=== PATIENT | female | born 2000 | race African-American/Black ===

== ENCOUNTER 2020-06-23 14:19 | Emergency (ER) | payer SELFPAY ==
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
[2020-06-23 14:24] VITALS: BP 134/65; PULSE 103; RESP 16; TEMP 37.3; O2SAT 100
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
[2020-06-23 17:23] VITALS: BP 130/62; PULSE 100; RESP 17; O2SAT 98
== END 2020-06-23 17:25 | disposition home or self-care (01) ==
PROVIDERS: Emergency Provider Emergency Medicine
DX: S39.012A Strain of muscle, fascia and tendon of lower back, initial encounter (principal); S16.1XXA Strain of muscle, fascia and tendon at neck level, initial encounter; V43.52XA Car driver injured in collision with other type car in traffic accident, initial encounter
CPT/HCPCS: 72100; 72125; 73562; 99284

== ENCOUNTER 2021-02-21 02:20 | Emergency (ER) | payer BC, SELFPAY ==
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
--- NOTE | 2021-02-21 02:26 | ECG_ITS ---
Measurements Intervals [place] Rate: 73 P: 12 AL: 167 QRS: 18 QRSD: 100 T: 5 QT: 369 QTc: 407 Interpretive Statements SINUS RHYTHM INCOMPLETE RIGHT BUNDLE BRANCH BLOCK BORDERLINE T WAVE ABNORMALITY- INFERIOR LEADS BORDERLINE ECG Electronically Signed On 02-21-2021 7:30:32 CDT by Elijah Moran D.O.
[2021-02-21 02:30] VITALS: BP 147/97; PULSE 98; RESP 18; TEMP 37.1; O2SAT 97
--- NOTE | 2021-02-21 02:30 | PC.NURSE ---
Pt presents to ED with complaints of chest pain, nausea and sob that onset at approx 0030. Pt states she went out for mimosa's with friends and shortly after drinking she began to feel strange. Pt states she became sob and couldn't breathe. Pt denies any substance abuse and is noted to be anxious and jumpy. Pt friend presented to ED with her and both state pt does not use any reacreational drugs. Pt noted to be alert and orientedx4 and breathing is even and unlabored. Pt denies hx of similar events. Vitals are stable, O2 saturation 98% on room air.
[2021-02-21 02:38] VITALS: BP 147/97; PULSE 78; RESP 14; TEMP 37.2; O2SAT 100
--- NOTE | 2021-02-21 02:45 | ED.GENADULT ---
HPI - General Adult General Chief complaint: Altered Mental Status Stated complaint: AMS, anxiety Time Seen by Provider: 02/21/21 02:23 History of Present Illness HPI narrative: Patient 20-year-old female that presents to the emergency department with chief complaint of altered mental status. Per the patient's friend the patient went out this afternoon and had mimosas with a brunch. The patient has been feeling anxious and has had chest discomfort and is also had nausea and vomiting. The patient states right now she feels extremely anxious and feels extremely weak and as though she is very dry. The patient denies injury denies loss of consciousness Related Data Allergies Allergy/AdvReac Type Severity Reaction Status Date / Time No Known Allergies Allergy Verified 06/23/20 16:45 Review of Systems Review of Systems: Narrative: A 10 system review of systems was completed on the patient and is negative except for what is stated in the HPI. Nursing and ancillary documentation was reviewed. [facility] Social History Social History Gender identity (if verbalized by the patient): Female Exam Narrative: Exam Narrative: GENERAL: Well-appearing, well-nourished, and in no acute distress. HEAD: Normocephalic, atraumatic. EYES: PERRLA and EOMI. ENT: Nares clear, no rhinorrhea or epistaxis. Mucous membranes moist. NECK: Supple. CHEST: Clear to auscultation. No respiratory distress. Chest wall is tender to palpation HEART: Regular rate and rhythm. No murmur heard. Normal peripheral pulses. ABDOMEN: Soft, nontender, nondistended, normal active bowel sounds. EXTREMITIES: Normal range of motion. No edema. SKIN: Warm, dry, no rash. NEURO: No focal deficits. Alert and oriented x3. PSYCH: Normal mood and affect. Course Course Emergency Course: Patient has been observed in the emergency department EKG showed no evidence of acute ischemia. Chest x-ray showed no focal abnormalities Vital Signs Vital signs: Vital Signs Temperature 37.1 C 02/21/21 02:30 Pulse Rate 98 02/21/21 02:30 Respiratory Rate 18 02/21/21 02:30 Blood Pressure 147/97 H 02/21/21 02:30 Pulse Oximetry 97 02/21/21 02:30 Temperature 37.2 C 02/21/21 02:38 Pulse Rate 81 02/21/21 06:16 Respiratory Rate 17 02/21/21 06:16 Blood Pressure 126/67 02/21/21 06:16 Pulse Oximetry 100 02/21/21 06:16 Medical Decision Making Vital Signs Vital Signs: Vital Signs Temperature 37.1 C 02/21/21 02:30 Pulse Rate 98 02/21/21 02:30 Respiratory Rate 18 02/21/21 02:30 Blood Pressure 147/97 H 02/21/21 02:30 Pulse Oximetry 97 02/21/21 02:30 Temperature 37.2 C 02/21/21 02:38 Pulse Rate 81 02/21/21 06:16 Respiratory Rate 17 02/21/21 06:16 Blood Pressure 126/67 02/21/21 06:16 Pulse Oximetry 100 02/21/21 06:16 Lab Data Result diagrams: 02/21/21 02:55 02/21/21 02:55 Labs: Lab Results 02/21/21 02/21/21 02/21/21 Range/Units 02:55 02:55 02:55 WBC 7.0 (4.5-10.0) K/mm3 RBC 5.21 (4.2-5.4) M/mm3 Hgb 14.0 (12.0-15.0) g/dL Hct 42.9 (37.0-47.0) % MCV 82.3 (80-100) fl MCH 26.9 (26-34) pg MCHC 32.6 (32-36) g/dl RDW 12.9 (11.5-14.5) % Plt Count 317 (150-375) k/mm3 MPV 11.1 H (7.4-10.4) fl Immature Gran % (Auto) 0.3 (0-0.5) % Neut % (Auto) 69.0 (45.5-73.1) % Lymph % (Auto) 20.6 (18.3-44.2) % Reeves % (Auto) 9.7 H (2.6-8.5) % Eos % (Auto) 0.0 (0-4.4) % Baso % (Auto) 0.4 (0.2-1.2) % Lymph # (Auto) 1.45 (0.9-3.2) K/mm3 Reeves # (Auto) 0.7 H (0.1-0.6) K/mm3 Eos # (Auto) 0.0 (0-0.3) K/mm3 Baso # (Auto) 0.0 (0.0-0.1) K/mm3 Abs Immat Gran (auto) 0.02 (0.00-0.031) K/mm3 Absolute Neuts (auto) 4.9 (1.3-6.7) K/mm3 Absolute Nucleated RBC 0.0 (0.0-0.012) K/mm3 Nucleated RBC % 0.0 (0.0-0.2) % Sodium 140 (137-145) mmo
--- NOTE | 2021-02-21 03:03 | PC.NURSE ---
CXR completed at bedside.
[2021-02-21] MEDS: SODIUM CHLORIDE 0.9% IV 1,000 ML 999 ML IV CONT (03:04)
[2021-02-21] MEDS: PROCHLORPERAZINE EDISYLATE 10 MG/2 ML VIAL IV PUSH (03:05)
[2021-02-21] MEDS: diphenhydrAMINE HCl INJ 50 MG/ML VIAL 25 MG IV PUSH (03:05)
[2021-02-21 03:09] LABS: Basophils Percent Auto 0.4 % (0.2-1.2); Hematocrit 42.9 % (37.0-47.0); Immature Granulocyte Absolute 0.02 K/mm3 (0.00-0.031); Immature Granulocyte Percent A 0.3 % (0-0.5); Lymphocytes Absolute Auto 1.45 K/mm3 (0.9-3.2); Lymphocytes Percent Auto 20.6 % (18.3-44.2); Mean Corpuscular HGB Conc 32.6 g/dl (32-36); Mean Corpuscular Hemoglobin 26.9 pg (26-34); Mean Corpuscular Volume 82.3 fl (80-100); Mean Platelet Volume 11.1 fl (7.4-10.4); Monocytes Absolute Auto 0.7 K/mm3 (0.1-0.6); Monocytes Percent Auto 9.7 % (2.6-8.5); Neutrophils Absolute Auto 4.9 K/mm3 (1.3-6.7); Platelet Count Result 317 k/mm3 (150-375); Red Blood Count 5.21 M/mm3 (4.2-5.4); Red Cell Distribution Width 12.9 % (11.5-14.5)
[2021-02-21 03:14] LABS: Acetaminophen < 10 ug/mL (10-30); Ethanol < 10 mg/dL (<10); Salicylate < 1.0 mg/dL (2-20)
[2021-02-21 03:16] LABS: Lactic Acid Reflex 1.7 mmol/L (0.7-2.1)
[2021-02-21 03:23] LABS: Alanine Aminotransferase 25 U/L (4-35); Albumin Level 4.8 g/dL (3.5-5.1); Alkaline Phosphatase 69 U/L (38-126); Anion Gap 11 mmol/L (8-16); Aspartate Amino Transferase 34 U/L (14-36); Bilirubin,Total 0.4 mg/dL (0.2-1.3); Blood Urea Nitrogen 7 mg/dL (7-17); Calcium 9.8 mg/dL (8.4-10.2); Carbon Dioxide 24 mmol/L (22-30); Chloride 105 mmol/L (98-107); Estimated Glomerular Filt Rate > 60; Glucose 108 mg/dL (65-105); Potassium 3.7 mmol/L (3.4-5.0); Sodium 140 mmol/L (137-145)
[2021-02-21 03:35] LABS: Troponin I < 0.012 ng/mL (0.000-0.034)
--- NOTE | 2021-02-21 03:45 | PC.NURSE ---
Pt on cart sleeping. Friend remains at bedside. Vitals are stable and pt in no obvious distress.
--- NOTE | 2021-02-21 04:52 | PC.NURSE ---
pt ambulated to restroom with steady gait to provide urine specimen. Pt states I feel a lot better than I did when I first came in here . Pt alert and oriented x4. Breathing even and unlabored and pt in no obvious distress.
--- NOTE | 2021-02-21 05:09 | PC.NURSE ---
EDMD presented to bedside. Updated pt on poc. Pt states she is still unable to urinate but has ambulated to restroom to attempt again.
--- NOTE | 2021-02-21 05:30 | PC.NURSE ---
Pt unable to urinate. Provided ice water per ok from EDMD.
--- NOTE | 2021-02-21 05:52 | PC.NURSE ---
Pt straight cath'd and tolerated well. Urine specimen collected and sent to lab. Bedside negative.
[2021-02-21 06:03] LABS: Add Urine Microscopic? YES; Appearance Urine Clear (Clear); Bilirubin Urine Negative (Negative); Blood Urine Negative (Negative); Color Urine Yellow (Yellow); Glucose Urine UA Negative (Negative); Ketones Urine Trace mg/dL (Negative); Leukocyte Esterase Ur Negative LEU/UL (Negative); Mucus Urine Few /lpf; Nitrate Urine Negative (Negative); Protein Urine 2+ mg/dL (Negative); RBC Urine 0-2 /hpf (0-2); Squamous Epithelial Cell Urine Rare /hpf (Few); WBC Urine 0-3 /hpf
[2021-02-21 06:16] VITALS: BP 126/67; PULSE 81; RESP 17; O2SAT 100
--- NOTE | 2021-02-21 06:17 | PC.NURSE ---
Pt resting on cart in its lowest position with call button for assistance. Vitals are stable and pt in no obvious distress.
[2021-02-21 06:19] LABS: Amphetamine Screen Urine Negative (Negative); Barbiturate Screen Urine Negative (Negative); Benzodiazepines Screen Urine Negative (Negative); Cannabinoid Screen Urine Positive (Negative); Cocaine Screen Urine Negative (Negative); Methadone Screen Urine Negative (Negative); Opiate Screen Urine Negative (Negative); Phencyclidine Screen Urine Negative (Negative)
--- NOTE | 2021-02-21 06:38 | PC.NURSE ---
EDMD presented to bedside to updated pt on poc. All questions and concerns addressed.
== END 2021-02-21 06:45 | disposition home or self-care (01) ==
PROVIDERS: Emergency Provider Emergency Medicine
DX: R07.89 Other chest pain (principal); R94.31 Abnormal electrocardiogram [ECG] [EKG]; I45.10 Unspecified right bundle-branch block
CPT/HCPCS: 36415; 71045; 80053; 80307; 81001; 81025; 83605; 84484; 85025; 93005; 96361; 96374; 96375; 99284; J0780; J1200; J7030

== ENCOUNTER 2021-09-04 14:11 | Emergency (ER) | payer OTHER, BC, SELFPAY ==
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
[2021-09-04 14:22] VITALS: BP 152/92; PULSE 78; RESP 17; TEMP 36.4; O2SAT 97
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
[2021-09-04] MEDS: ACETAMINOPHEN 500 MG TABLET 1000 MG PO (15:11)
[2021-09-04 17:37] VITALS: BP 138/78; PULSE 76; RESP 18; O2SAT 99
== END 2021-09-04 17:39 | disposition home or self-care (01) ==
PROVIDERS: Emergency Provider Emergency Medicine
DX: S09.90XA Unspecified injury of head, initial encounter (principal); S16.1XXA Strain of muscle, fascia and tendon at neck level, initial encounter; V48.5XXA Car driver injured in noncollision transport accident in traffic accident, initial encounter
CPT/HCPCS: 70450; 70486; 72125; 72128; 99284; A9270

== ENCOUNTER 2022-09-15 10:18 | Emergency (ER) | payer BC, SELFPAY ==
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
--- NOTE | ~2022-09-15 | CT_ITS ---
EXAMINATION: CTA chest PE protocol DATE: 09/15/2022 14:25 INDICATION: Chest pain. Shortness of breath. TECHNIQUE: Computed tomography angiography (CTA) of the chest was performed with 100 mL Omnipaque-350 intravenous contrast timed to evaluate the pulmonary arteries. Coronal maximum intensity projection 3D-reconstructions were created by the technologist. Automated exposure control and iterative reconst ruction technique were employed. The dose-length product was 537.17 mGy-cm. COMPARISON: None. FINDINGS: The lungs demonstrate mild atelectasis. There are mild groundglass and airspace opacities i n left lower lobe, consistent with pneumonia. No pleural effusion. The heart size is normal. No peric ardial effusion. There is no pulmonary embolus. The bones are unremarkable. IMPRESSION: 1. No pulmonary embolus. 2. Mild pneumonia in left lower lobe. Reviewed, dictated and finalized at location A. DINE OPERATOR
[2022-09-15 10:44] VITALS: BP 158/103; PULSE 117; RESP 20; TEMP 36.8; O2SAT 100
--- NOTE | 2022-09-15 10:51 | ECG_ITS ---
Measurements Intervals [place] Rate: 90 P: 40 CT: 154 QRS: 15 QRSD: 99 T: 16 QT: 335 QTc: 412 Interpretive Statements SINUS RHYTHM INCOMPLETE RIGHT BUNDLE BRANCH BLOCK BORDERLINE T WAVE ABNORMALITY- INF/LAT LEADS BORDERLINE ECG COMPARED TO ECG 02/21/2021 05:05:47 NO SIGNIFICANT CHANGES Electronically Signed On 09-15-2022 14:59:56 ALLIGATOR SHEAR OPERATOR by Elijah Moran D.O.
[2022-09-15 12:02] VITALS: BP 151/77; PULSE 81; RESP 12; O2SAT 100
[2022-09-15 12:15] LABS: Hematocrit 45.5 % (37.0-47.0); Hemoglobin 14.4 g/dL (12.0-15.0); Immature Granulocyte Absolute 0.01 K/mm3 (0.00-0.031); Immature Granulocyte Percent A 0.2 % (0-0.5); Lymphocytes Absolute Auto 1.06 K/mm3 (0.9-3.2); Lymphocytes Percent Auto 26.3 % (18.3-44.2); Mean Corpuscular HGB Conc 31.6 g/dl (32-36); Mean Corpuscular Hemoglobin 26.9 pg (26-34); Mean Platelet Volume 10.1 fl (7.4-10.4); Monocytes Absolute Auto 0.5 K/mm3 (0.1-0.6); Monocytes Percent Auto 11.4 % (2.6-8.5); Neutrophils Absolute Auto 2.5 K/mm3 (1.3-6.7); Neutrophils Percent Auto 61.1 % (45.5-73.1); Platelet Count Result 243 k/mm3 (150-375); Red Blood Count 5.35 M/mm3 (4.2-5.4); Red Cell Distribution Width 13.2 % (11.5-14.5)
[2022-09-15 12:28] LABS: Influenza A QL RT-PCR Negative (Negative); Influenza B QL RT-PCR Negative (Negative); SARS-CoV-2 RNA PCR Positive
[2022-09-15 12:28] LABS: Alanine Aminotransferase 49 U/L (6-35); Albumin Level 4.6 g/dL (3.5-5.1); Alkaline Phosphatase 86 U/L (38-126); Anion Gap 13 mmol/L (8-16); Aspartate Amino Transferase 54 U/L (14-36); Bilirubin,Total 0.5 mg/dL (0.2-1.3); Blood Urea Nitrogen 6 mg/dL (7-17); Calcium 9.2 mg/dL (8.4-10.2); Carbon Dioxide 25 mmol/L (22-30); Chloride 101 mmol/L (98-107); Estimated CRCL calculation 118 ml/min; Estimated Glomerular Filt Rate > 60; Glucose 83 mg/dL (65-110); Lipase 104 U/L (23-300); Potassium 3.9 mmol/L (3.4-5.0); Sodium 139 mmol/L (137-145)
[2022-09-15 12:32] LABS: INR 1.1; Partial Thromboplastin Time 28.7 SECONDS (22.3-36.8); Prothrombin Time 13.6 Seconds (11.1-14.7)
[2022-09-15 12:38] LABS: Troponin I < 0.012 ng/mL (0.000-0.034)
[2022-09-15 12:46] VITALS: BP 154/99; PULSE 78; RESP 16; O2SAT 100
[2022-09-15 13:00] LABS: Platelet Estimate Adequate (Adequate)
[2022-09-15 13:01] LABS: Atypical Lymphocytes Present; Schistocytes None Seen (NORMAL)
[2022-09-15 13:17] LABS: D Dimer 0.53 ug/mL (<0.48)
--- NOTE | 2022-09-15 13:36 | ED.CHESTPAIN ---
HPI - Chest Pain General Chief Complaint: Chest Pain Stated Complaint: Covid positive, sob Time Seen by Provider: 09/15/22 12:06 Source: patient Mode of arrival: ambulatory Limitations: no limitations History of Present Illness HPI narrative: This is a 22-year-old female that presents to the emergency department for cold symptoms ongoing over the last couple of days. Reports myalgias, weakness, chills, chest pain, cough, and shortness of breath. Reports she tested positive for COVID yesterday. She is COVID vaccinated. Denies fever or lower extremity edema. Related Data Allergies Allergy/AdvReac Type Severity Reaction Status Date / Time No Known Allergies Allergy Verified 09/04/21 14:28 Review of Systems Review of Systems: CONSTITUTIONAL: Denies fever ENT: Reports congestion, sore throat CARDIOVASCULAR: Reports chest pain. Denies edema. RESPIRATORY: Reports cough and dyspnea. NEUROLOGIC: Reports generalized weakness. All systems reviewed & are unremarkable except as noted in HPI and below PMFSH Past Medical History Medical History (Updated 09/15/22 @ 16:18 by Josie Herrera PA-C) History of hypertension Social History Social History (Updated 09/15/22 @ 13:39 by Josie Herrera PA-C) Smoking status: Never smoker Substance use: never Gender identity (if verbalized by the patient): Female Exam Narrative: GENERAL: Well-appearing, well-nourished, and in no acute distress. HEAD: Normocephalic, atraumatic. EYES: EOMI. ENT: Nares clear, no rhinorrhea or epistaxis. Mucous membranes moist. Oropharynx without tonsillar hypertrophy exudate or other lesions. Bilateral TMs pearly cervantes non-bulging NECK: Supple. No adenopathy or masses. CHEST: Clear to auscultation. No respiratory distress. No wheezes rales or rhonchi HEART: Regular rate and rhythm. No murmur heard. Normal peripheral pulses. EXTREMITIES: Normal range of motion. No edema. SKIN: Warm, dry, no rash. NEURO: No focal deficits. Alert and oriented x3. PSYCH: Normal mood and affect Course Vital Signs Vital signs: Vital Signs Temperature 98.3 F 09/15/22 10:44 Pulse Rate 117 H 09/15/22 10:44 Respiratory Rate 20 09/15/22 10:44 Blood Pressure 158/103 H 09/15/22 10:44 Pulse Oximetry 100 09/15/22 10:44 Oxygen Delivery Room Air 09/15/22 10:44 Temperature 98.3 F 09/15/22 10:44 Pulse Rate 70 09/15/22 16:01 Respiratory Rate 16 09/15/22 16:01 Blood Pressure 136/83 09/15/22 16:01 Pulse Oximetry 100 09/15/22 16:01 Oxygen Delivery Room Air 09/15/22 10:44 MDM - Chest Pain MDM Narrative Medical decision making narrative: Patient presents to the emergency department for cold symptoms noted over the last couple of days. She is afebrile and nontoxic-appearing. Mildly tachycardic upon arrival, this normalized with fluids. CBC metabolic panel without concerning findings. Consistent with current viral infection. EKG without concerning changes. Baseline and 3 hour troponin are negative. D-dimer was elevated, so CTA of the chest was obtained. No evidence for PE. Patient does have a developing left lower lobe pneumonia. She is COVID-19 positive. Bedside test is negative. Patient was updated on case findings. Gave patient option of antiviral therapy with Paxlovid. She does wish to pursue this. This was sent to the pharmacy. She was instructed on continued care of viral infection. She is to follow-up with primary care provider. She was given warnings to return to the ER Lab Data Attestation: I reviewed the patient's lab results. Result diagrams: 09/15/22 12:09 09/15/22 12:09 Labs: Lab Results 09/15/22 09/15/22 09/15/22 Range/Units 11:47 12:09 12:09 WBC 4.0 L (4.5-10.0) K/mm3 RBC 5.35 (4.2-5.4) M/mm3 Hgb 14.4 (12.0-15.0) g/dL Hct 45.5 (37.0-47.0) % MCV 85.0 (80-100) fl MCH 26.9 (26-34) pg MCHC 31.6 L (32-36) g/dl RDW 13.2 (11.
[2022-09-15] MEDS: ALBUTEROL SULFATE (*SP) AEROSOL 1 PUFF 2 PUFF INHALATION (13:46)
[2022-09-15 14:02] VITALS: PULSE 81; RESP 19; O2SAT 100
[2022-09-15] MEDS: SODIUM CHLORIDE 0.9% IV 1,000 ML 999 ML IV CONT (14:41)
[2022-09-15 15:17] LABS: Troponin I < 0.012 ng/mL (0.000-0.034)
[2022-09-15] MEDS: KETOROLAC 15 MG/ML VIAL (*BKC) IV PUSH (15:28)
[2022-09-15 16:01] VITALS: BP 136/83; PULSE 70; RESP 16; O2SAT 100
[2022-09-15 16:50] VITALS: BP 134/93; PULSE 66; RESP 18; TEMP 36.9; O2SAT 100
== END 2022-09-15 17:00 | disposition home or self-care (01) ==
PROVIDERS: Emergency Medicine; Physician Assistant; Emergency Provider Emergency Medicine
DX: U07.1 COVID-19 (principal); J12.82 Pneumonia due to coronavirus disease 2019
CPT/HCPCS: 36415; 71045; 71275; 80053; 81025; 83690; 84484; 85025; 85380; 85610; 85730; 87636; 93005; 96361; 96374; 96375; 99284; A9270; J0131; J1885; J7030; Q9967

== ENCOUNTER 2022-10-18 08:10 | Emergency (ER) | payer BC, SELFPAY ==
[2022-10-18 08:22] VITALS: BP 147/80; PULSE 90; RESP 16; TEMP 36.1; O2SAT 100
--- NOTE | 2022-10-18 08:40 | ED.GENADULT ---
HPI - General Adult General Chief complaint: Urogenital-Female Stated complaint: std check up, vaginal discharge Source: patient Mode of arrival: ambulatory Limitations: no limitations History of Present Illness HPI narrative: Patient presents for evaluation of vaginal discharge since the end of August. At the time of symptom onset she had burning and itching sensation in her vaginal area. She quit at that time was given a prescription for amoxicillin. She states that the burning and itching away with amoxicillin. Vaginal discharge persists. She states the discharge is clear. She denies any fever, chills, nausea, vomiting, abdominal pain, or urinary symptoms. She is not taking any medications to assist with her symptoms. She has not been sexually active since the time of symptom onset. Prior to that time she had protected intercourse with a male partner. She is not sure if he is symptomatic. LMP 10/01/22. Related Data Allergies Allergy/AdvReac Type Severity Reaction Status Date / Time No Known Allergies Allergy Verified 09/04/21 14:28 Review of Systems Review of Systems: CONSTITUTIONAL: Denies fever, chills, or sweats. EYES: Denies visual changes, redness, or discharge. ENT: Denies rhinorrhea, congestion, sore throat, or otalgia. CARDIOVASCULAR: Denies chest pain, palpitations, or edema. RESPIRATORY: Denies cough or dyspnea. GASTROINTESTINAL: Denies abdominal pain, nausea, vomiting, or diarrhea. GENITOURINARY: reports clear vaginal discharge. Denies vaginal bleeding. Denies hematuria, dysuria, urinary frequency, urgency, hesitancy SKIN: Denies rash or itching. MUSCULOSKELETAL: Denies back pain, joint pain, or myalgia. NEUROLOGIC: Denies headache, numbness, dizziness, or weakness. PSYCHIATRIC: Denies anxiety or depression. [facility] Past Medical History Medical History (Updated 10/18/22 @ 09:07 by SANDRA Roman, FAIZA) History of hypertension Surgical History Surgical History No pertinent past surgical history Family History Family History Mother Family history non-contributory Social History Social History Smoking status: Never smoker Substance use: never Living arrangements: dorm student housing Occupation/Education: student Gender identity (if verbalized by the patient): Female Sexual Orientation (if Verbalized by the Patient): Straight or Heterosexual Spiritual care concerns: No Exam Narrative: GENERAL: Well-appearing, well-nourished, and in no acute distress. HEAD: Normocephalic, atraumatic. EYES: PERRLA and EOMI. ENT: Nares clear, no rhinorrhea or epistaxis. Mucous membranes moist. Oropharynx without tonsillar hypertrophy exudate or other lesions. Bilateral TMs pearly cervantes nonbulging NECK: Supple. No adenopathy or masses. No carotid bruits or JVD CHEST: Clear to auscultation. No respiratory distress. No wheezes rales or rhonchi HEART: Regular rate and rhythm. No murmur heard. Normal peripheral pulses. ABDOMEN: Soft, nontender, nondistended, normal active bowel sounds. EXTREMITIES: Normal range of motion. No edema. GENITAL: No external genital lesions. No adnexal tenderness. No cervical motion tenderness. There was a thick yellow mucopurulent discharge in the vaginal vault as well as a thick white clumpy discharge which is also present SKIN: Warm, dry, no rash. NEURO: No focal deficits. Alert and oriented x3. PSYCH: Normal mood and affect. Course Course Emergency Course: this is a 22-year-old female who came in today for evaluation of vaginal discharge. She does have evidence of vaginal candidiasis so will treat with diflucan. She also has a mucopurulent discharge. Offered empiric treatment vs waiting for results. She would like to be treated today. Rocephin administered here. D/C wi
[2022-10-18] MEDS: cefTRIAXone 250 MG VIAL 500 MG IM (09:15)
== END 2022-10-18 09:41 | disposition home or self-care (01) ==
PROVIDERS: Emergency Provider Nurse Practitioner
DX: N76.0 Acute vaginitis (principal); I10 Essential (primary) hypertension
CPT/HCPCS: 81003; 87070; 87086; 87491; 87591; 87661; 96372; 99214; G0463; J0696

== ENCOUNTER 2024-07-03 15:37 | Emergency (ER) | payer BC, SELFPAY ==
--- NOTE | ~2024-07-03 | XR_ITS ---
EXAMINATION: XR knee RT min 4V DATE: 07/03/2024 16:15 INDICATION: Right knee injury. TECHNIQUE: 4 views of right knee were obtained. COMPARISON: None. FINDINGS: Alignment is normal. No fracture. There is mild tricompartmental osteoarthritis. No knee obie int effusion. IMPRESSION: 1. Mild right knee osteoarthritis. Reviewed, dictated and finalized at location A.
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
[2024-07-03 15:44] VITALS: BP 123/59; PULSE 100; RESP 16; TEMP 36.6; O2SAT 100
--- NOTE | 2024-07-03 16:34 | PC.NURSE ---
+PMS POST MINDA APPLICATION
== END 2024-07-03 16:30 | disposition hospice, home (50) ==
PROVIDERS: Emergency Provider Nurse Practitioner Family
DX: S83.91XA Sprain of unspecified site of right knee, initial encounter (principal); S80.01XA Contusion of right knee, initial encounter; Y04.0XXA Assault by unarmed brawl or fight, initial encounter; I10 Essential (primary) hypertension
CPT/HCPCS: 73564; 99213; G0463

== ENCOUNTER 2024-09-18 14:20 | Emergency (ER) | payer BC, SELFPAY ==
--- NOTE | 2024-09-18 14:26 | ED_ITS ---
HPI - URI/Sore Throat General Chief Complaint: Upper Respiratory Infection Stated Complaint: CONGESTION/CHEST PAIN/DIARRHEA Time Seen by Provider: 09/18/24 14:20 Source: patient Mode of arrival: ambulatory Limitations: no limitations History of Present Illness HPI Narrative: Patient is a 24-year-old female who presents with 1 week of cough congestion and intermittent diarrhea. Patient has history of asthma. Patient has not taken anything for symptoms. Patient uses inhaler twice a day. Denies any fever, chills, nausea, vomiting. Related Data Allergies Allergy/AdvReac Type Severity Reaction Status Date / Time No Known Allergies Allergy Verified 09/18/24 14:35 Review of Systems Review of Systems: All systems reviewed & are unremarkable except as noted in HPI and below Constitutional: Constitutional: Denies body ache(s), Denies chills, Denies fatigue, Denies fever(s), Denies headache(s), Denies malaise and Denies weakness Eyes: Eyes: Denies blurry vision, Denies itchy eyes and Denies loss of vision ENT: Denies otalgia, Denies headache(s), Reports nasal congestion, Denies sinus pain and Denies sore throat Cardiovascular: Cardiovascular: Denies chest pain, Denies irregular heart rhythm and Denies dyspnea Respiratory: Respiratory: Reports chest congestion, Reports cough and Denies dyspnea Gastrointestinal: Gastrointestinal: Denies abdominal pain, Denies diarrhea, Denies nausea and Denies vomiting Musculoskeletal: Musculoskeletal: Denies back pain, Denies myalgias and Denies arthralgias Integumentary/Breasts: Skin/Breast: Denies pruritus and Denies rash Neurologic: Denies headache(s), Denies loss of vision and Denies weakness Psychiatric: Psychiatric: Reports no additional psychiatric complaints Endocrine: Endocrine: Denies fatigue Allergic/Immunologic: Allergic/Immunologic: Denies itchy eyes PMFSH Past Medical History Medical History History of hypertension Surgical History Surgical History No pertinent past surgical history Family History Family History Mother Family history non-contributory Social History Social History (Reviewed 09/18/24 @ 15:13 by MODESTO Das Smoking status: Never smoker Substance use: never Living arrangements: dorm student housing Occupation/Education: student Gender identity (if verbalized by the patient): Female Sexual Orientation (if Verbalized by the Patient): Straight or Heterosexual Spiritual care concerns: No Comments At time of signature, agree with nursing past medical, surgical, social and family history. There is no relevant family history pertinent to the presenting complaint. Exam Const: General: cooperative, healthy appearing, comfortable, no acute distress and well nourished Nutritional Appearance: well nourished Orientation/consciousness: patient oriented x3 Limitations: no limitations HENMT: Head: normal to inspection, normocephalic and atraumatic Ears: hearing grossly normal bilaterally, external ears normal, TM's normal bilaterally, EAC's normal and no periauricular adenopathy Face/Nose/Sinus: Normal external nose present, Abnormal mucous membranes and turbinates present erythematous bilateral and diffuse, normal facial exam, sinuses nontender and face symmetric Face and sinus: normal facial exam, sinuses nontender and face symmetric Mouth: Yes Normal oral and palatal mucosa present, Yes lip normal, Yes tongue normal, Yes Normal salivary glands and ducts present, Yes oropharynx normal and Yes moist mucous membranes Teeth and gingiva: dentition normal Throat: posterior oropharynx normal, tonsils normal and uvula midline Eyes: General: appearance normal, both eyes and all related structures Alignment and Position: alignment normal and position normal Periorbital: periorbital findings normal Eyelids: eyelids normal Pupils: Equal, round a nd reactive pupils present Neck: Neck: normal visual inspection, full ROM, no lymphadenopathy and supple Chest: Chest palpation & inspection: normal inspection of the chest and normal palpation of entire chest wall Resp: Effort & Inspection: normal respiratory effort and able to speak in complete sentences Auscultation: no crackles, no rales, no rhonchi and wheezes scattered wheezes and throughout Cardio: Rate: regular rate Rhythm: regular rhythm Heart sounds: S1 normal heart sound present and S2 normal heart sound present GI: Inspection: normal to inspection Skin: General skin exam: normal color and no rashes or lesions noted Neuro: General: patient oriented x3 and moves all extremities Cranial nerves: Yes Equal, round and reactive pupils present Speech: normal speech Gait exam (Neuro): Normal gait present Extrem: General: normal to inspection, full ROM and no edema Psych: Appearance: grossly normal and well kempt Mental Status: mental status grossly normal Speech and movement: Normal speech and movement present Affect: normal affect Attitude: cooperative Thought process: Normal thought process present Course Course Emergency Course: Patient is aware of diagnosis, understands and agrees to treatment plan. Anticipatory guidance given. Patient agrees to follow-up as directed and is aware of reasons to seek care at the emergency department. Portions of this record may have been created with voice recognition software Level of Care: Express Care Visit Vital Signs Vital signs: Reviewed MDM - URI/Sore Throat MDM Narrative Medical decision making narrative: Discharge instructions reviewed with patient, as well as provided in writing per nursing staff. The instructions also include specific and strict return/GO TO THE ER as well as f/u information. All questions have been answered, and the patient deny any further questions with discharge and discharge plan. Differential diagnosis considered: Dominguez virus, strep pharyngitis, allergic rhinitis, upper respiratory tract infection, sinusitis, rhinosinusitis, nasopharyngitis. viral pharyngitis, otitis media, otitis externa, otitis effusion, foreign body, cerumen impaction, viral syndrome, and influenza.? Exam findings show no acute concerns or changes; patient is non-toxic appearing and is in no distress.? Patient is appropriate for outpatient treatment and follow- up.? Medical Records Attestation: I reviewed the patient's medical records. Discharge Plan Discharge Clinical Impression: Upper respiratory infection with cough and congestion, History of asthma Patient Disposition: Home, Self-Care Condition: Stable Instructions: Upper Respiratory Infection (ED) Additional Instructions: Take antibiotic as prescribed. Take steroids in the morning with food. Use Tessalon Perles as needed for cough. Use inhaler with spacer as needed. Other symptomatic treatments include: -Alternate Tylenol and Motrin per package directions for fever or pain. -Antihistamine medication such as Benadryl at night and Zyrtec/Claritin/Charo during the day can help improve symptoms. -Use Flonase twice a day for 5 days then daily to help reduce the inflammation and dry up your sinuses. -You can also use Sudafed or Mucinex. Be sure to drink plenty of water with these medications at least 8 ounces with every dose and it is important to drink 8 to 10 glasses of water per day. Water is a natural decongestant -Eat and drink things that are easy to swallow, like tea or soup, or popsicles. -Oral rinses such as: Salt water gargles and/or may use topical anesthetic (eg. Chloraseptic spray) or lozenges to relieve dryness or throat pain). -Frequent hand washing or hand biology adjunct instructor is one of the best ways to prevent spread of infection. -Using a vaporizer or humidifier at night will also help thin secretions and help with coughing up phlegm. -Follow up with primary care provider in 3-5 days if condition is not improving - For new or worsening symptoms go directly to the nearest ER Your blood pressure was elevated above 120/80 today at Urgent Care. This puts you above the threshold for follow up visit with a primary care provider. High blood pressure does not usually cause any symptoms, however it may lead to kidney failure, stroke, heart disease just to name a few if untreated . Many people are anxious when seeing a provider or nurse. As a result, you are not diagnosed with hypertension at this time unless your blood pressure is persistently high at two office visits at least one week apart. Some things that can help lower blood pressure are lifestyle modifications, such as light exercise, decreased salt in diet, and weight loss. It is important to follow up with a PCP about this within 1 week. Prescriptions: New azithromycin 250 mg tablet See Rx Instructions .ROUTE .COMPLEX Qty: 6 0RF Rx Instructions: For 250 mg dose pack: take 500 mg today (day 1), then 250 mg for 4 days (days 2-5) benzonatate 100 mg capsule 100 mg PO BID PRN (Reason: cough) Qty: 14 0RF albuterol sulfate 90 mcg/actuation HFA aerosol inhaler 2 puff inhalation QID PRN (Reason: shortness of breath or wheezing) Qty: 6.7 0RF prednisone 20 mg tablet 40 mg PO DAILY 5 Days Qty: 10 0RF Follow-up/Referrals: Sp Lozada MD [Physician] - 3 Days PHYSICIAN,COPYRIGHT EXPERT [Primary Care Provider] - Stand Alone Forms: Work/School Release IP Time of Disposition: 15:04
[2024-09-18 14:37] VITALS: BP 144/94; PULSE 93; RESP 16; TEMP 36.8; O2SAT 100
== END 2024-09-18 15:06 | disposition home or self-care (01) ==
PROVIDERS: Emergency Provider Nurse Practitioner Family
DX: J06.9 Acute upper respiratory infection, unspecified (principal); J45.909 Unspecified asthma, uncomplicated; I10 Essential (primary) hypertension
CPT/HCPCS: 99213; G0463